=== PATIENT | female | born 1945 | race Asian ===

== ENCOUNTER 2020-07-29 14:42 | Outpatient (RCR) | payer MEDICARE, SELFPAY ==
[2020-07-29] MEDS: COVID-19 VACC, MRNA(PFIZER)/PF 30 MCG/0.3 ML SYRINGE IM (09:45)
[2020-08-19] MEDS: COVID-19 VACC, MRNA(PFIZER)/PF 30 MCG/0.3 ML SYRINGE IM (09:37)
== END 2020-10-28 23:59 ==
LOC: IMMUN 14:42
PROVIDERS: PCP Internal Medicine; Visit Provider Family Medicine
DX: Z23 Encounter for immunization (principal)
CPT/HCPCS: 0001A; 0002A; 91300